=== PATIENT | female | born 1975 | race Caucasian/White ===

== ENCOUNTER → 2017-03-23 | Outpatient (CLI) | payer BC | LOC: LAB.O 09:03 | PROVIDERS: ATTEND Obstetrics & Gynecology | DX: Z01.419 Encounter for gynecological examination (general) (routine) without abnormal findings (principal) ==

== ENCOUNTER 2017-12-08 06:14 | Inpatient (IN) | payer BC ==
[2017-12-08] MEDS ORDERED: LEVALBUTEROL NEBS 1.25 MG/3 ML VIAL NEB ONE ×3 (06:30→08:15)
--- NOTE | 2017-12-08 06:54 | ED.PDOC ---
History of Present Illness - General Source: patient Exam Limitations: no limitations - History of Present Illness Comments: Bing Kingston 42 y/o female stated had worsening SOB and productive cough since coming out from the hospital at [facility] 10 days ago.Admitted for bowel obstruction but had cardiac arrest while hospitalized was intubated and on mechanical ventilation for 2 days then gradually weaned off .her intestinal obstruction was managed conservatively w/NGT stating passing out flatus and has bowel movements. No chest pains,no nasea/vomiting ,no fever.also was diagnosed with cardio myopathy recently. Timing/Duration: getting worse, other - 2 days Cough Quality/Degree: productive cough Possible Cause: other - see hpi Improving Factors: nothing Worsening Factors: nothing Associated Symptoms: cough Respiratory Risk Factors: other - see hpi <Jeremy Carrizales - Last Filed: 12/08/17 07:08> <Oswaldo Shelton - Last Filed: 12/08/17 10:48> - General Chief Complaint: Respiratory Problem Stated Complaint: im coughing that my chest hurts Time Seen by Provider: 12/08/17 06:37 - History of Present Illness Allergies/Adverse Reactions: Allergies Sulfa Antibiotics Allergy (Unknown, Verified 12/08/17 06:34) Other Home Medications: Ambulatory Orders Amoxicillin & Pot Clavulanate [Augmentin Tab] 500 mg PO BID 12/08/17 Bifidobacterium Infantis [Align] 4 mg PO DAILY 12/08/17 Carvedilol 6.25 mg PO BID 12/08/17 Docusate Sodium [Colace Cap] 100 mg PO BID 12/08/17 Furosemide [Lasix] 20 mg PO DAILY 12/08/17 Gabapentin 300 mg PO TID 12/08/17 Lisinopril 2.5 mg PO DAILY 12/08/17 Ondansetron [Ondansetron Odt] 8 mg PO Q8HR PRN 12/08/17 Polyethylene Glycol 3350 [Miralax] 17 gm PO DAILY 12/08/17 Simethicone 125 mg PO TID 12/08/17 Tramadol HCl 50 mg PO PRN 12/08/17 cloNAZepam [KlonoPIN] 0.5 mg PO BID PRN 12/08/17 Review of Systems - Review of Systems Constitutional: States: no symptoms reported EENTM: States: no symptoms reported Respiratory: States: see HPI Cardiology: States: no symptoms reported Gastrointestinal/Abdominal: States: no symptoms reported Genitourinary: States: no symptoms reported Musculoskeletal: States: no symptoms reported Skin: States: no symptoms reported Neurological: States: no symptoms reported Endocrine: States: no symptoms reported <Jeremy Carrizales R Last Filed: 12/08/17 07:08> Past Medical History (General) - Patient Medical History Hx Cancer: Yes - left kidney Surgical History: other - nephrectomy left,mechanical vent,hysterectomy <Jeremy Carrizales R - Last Filed: 12/08/17 07:08> Family Medical History - Family History Father Hx Family Hypertension: Yes Hx Family Cancer: Yes - kidney,lymphoma Paternal Hx Family Asthma: No Hx Family Congestive Heart Failure: No Hx Family Hypertension: Yes Hx Family Stroke: No Hx Cardiac Disease: Yes Hx Family Diabetes: No Hx Family Cancer: Yes Hx Family;Other: lymphoma, materal COPD, cardiomyopathy <Jeremy Carrizales R Last Filed: 12/08/17 07:08> Physical Exam - Physical Exam General Appearance: Alert, Comfortable, No apparent distress Eye Exam: bilateral normal ENT Exam: normal ENT inspection, hearing grossly normal, pharynx normal Neck: supple, normal inspection, trachea midline Respiratory: no respiratory distress, no accessory muscle use, stridor, wheezing Cardiovascular/Chest: normal peripheral pulses, regular rate, rhythm, no murmur Gastrointestinal/Abdominal: non tender, soft, no organomegaly Extremity: no pedal edema, no calf tenderness Neurologic: alert, oriented x 3 Skin Exam: normal color, warm/dry <Jeremy Carrizales R - Last Filed: 12/08/17 07:08> Progress - Progress Progress: 12/08/17 07:00 Vital Signs - 8 hr 12/08/17 12/08/17 06:30 06:51 Temperature 98.4 F Pulse Rate [ 96 H pulse ox] Respiratory 20 20 Rate Blood Pressure 133/98 [Right Arm] O2 Sat by Pulse 96 Oximetry - EKG/XRAY/CT EKG: Sinus, nonspecific ST T wave Chg Comments: HR-76 <Jeremy Carrizales R - Last Filed: 12/08/17 07:08> - Progress Progress: 12/08/17 10:37 the patient's a 42-year-old female presenting to the emergency room with what appears to be a tracheitis and bronchitis 8 days after being extubated along with a mild CHF exacerbation.the patient had apparently been in the hospital up until 8 days ago for a volvulus that was treated nonsurgically. 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 The patient was extubated after 2 days and did have a pacemaker placed. It was thought that during the code the patient aspirated and the patient has apparently been on amoxicillin since. There is no history of COPD or asthma. Clinical exam is most consistent with a tracheitis and bronchitis today however chest x-ray is obviously showed changes consistent with CHF. She does have a markedly elevated BNP consistent with CHF. Blood and sputum cultures are being done. The patient does feel better after DuoNeb and Mucomyst breathing treatments. She does not become hypoxic except with coughing episodes and with lying back. She does feel less short of breath with oxygen on board. I would recommend humidifying it. The patient has received 40 mg oral prednisone for now to help reduce upper airway inflammation. She does additionally have a low potassium and low magnesium which will need to be followed. She has received 1 dose of IV Lasix for the CHF component. She is also receiving a dose of azithromycin for atypical bacterial sources, and is being covered with a dose of IM Rocephin and oral Levaquin for the possibility of this being a [id number] hospital-acquired infection. It is possible that the symptoms are due to a viral infection as a white blood cell count is essentially normal. It is also possible this may be due to persistent inflammation from the intubation or possibly persistent irritation from the aspiration. Again symptoms do seem to improve significantly with supplemental oxygen as well as the breathing treatments. The patient has been monitored in the emergency room for approximately 4 hours and does appear to be slowly improving with the above measures. Admit for continued measures above. The patient is very frail and we are trying to prevent further deterioration. 12/08/17 10:46 - Results/Orders Results/Orders: Laboratory Tests 12/08/17 12/08/17 12/08/17 07:20 07:20 08:54 WBC 5.4 RBC 3.30 L Hgb 11.1 L Hct 33.2 L MCV 100.6 H MCH 33.6 H MCHC 33.4 RDW 14.8 H Plt Count 474 H MPV 7.6 Absolute Neuts (auto) 3.50 Absolute Lymphs (auto) 1.00 Absolute Monos (auto) 0.70 Absolute Eos (auto) 0.10 Absolute Basos (auto) 0.10 Neutrophils % 64.1 Lymphocytes % 18.5 L Monocytes % 13.2 H Eosinophils % 2.2 Basophils % 2.0 PT 10.4 INR 1.04 PTT (SP) 19.1 L Sodium 141 Potassium 2.7 L Chloride 101 Carbon Dioxide 33 H Anion Gap 9.7 L BUN < 5 L Creatinine < 0.40 L BUN/Creatinine Ratio 12.0 Random Glucose 95 Serum Osmolality 277.3 Lactic Acid 1.2 Calcium 9.0 Magnesium 1.6 L Total Bilirubin 0.6 Direct Bilirubin < 0.1 Indirect Bilirubin 0.5 AST 27 ALT 16 Alkaline Phosphatase 82 Creatine Kinase 34 CK-MB (CK-2) 0.8 CK-MB (CK-2) % Not Reportable Troponin I < 0.02 B-Natriuretic Peptide 816.0 H* Serum Total Protein 6.4 Albumin 3.3 Urine Color Yellow Urine Appearance Clear Urine pH 8.5 H Ur Specific [place] 1.015 Urine Protein Negative Urine Glucose (UA) Negative Urine Ketones Negative Urine Blood Negative Urine Nitrite Negative Urine Bilirubin Negative Urine Urobilinogen 0.2 Ur Leukocyte Esterase Negative Urine RBC 0 Urine WBC 0 Ur Epithelial Cells 3-5 Urine Bacteria 0 EKG shows normal sinus rhythm. There does appear to be a fair amount of baseline static and mildly low voltage. No evidence of any ST segment elevation. Chest x-ray is consistent with congestive heart failure. Soft tissue of the neck x-ray showed no obvious acute abnormality. <Oswaldo Shelton L - Last Filed: 12/08/17 10:48> Departure <Jeremy Carrizales R - Last Filed: 12/08/17 07:08> <Oswaldo Shelton L - Last Filed: 12/08/17 10:48> - Departure Clinical Impression: Bronchitis, Tracheitis, Hypokalemia, Hypomagnesemia Acute exacerbation of CHF (congestive heart failure) Qualifiers: Heart failure type: combined systolic and diastolic Qualified Code(s): I50.43 - Acute on chronic combined systolic (congestive) and diastolic (congestive) heart failure Disposition: Admit Patient Referrals: Alejandro Garcia MD [Primary Care Provider] - 1-2 Weeks Home Medications: Ambulatory Orders Amoxicillin & Pot Clavulanate [Augmentin Tab] 500 mg PO BID 12/08/17 Bifidobacterium Infantis [Align] 4 mg PO DAILY 12/08/17 Carvedilol 6.25 mg PO BID 12/08/17 Docusate Sodium [Colace Cap] 100 mg PO BID 12/08/17 Furosemide [Lasix] 20 mg PO DAILY 12/08/17 Gabapentin 300 mg PO TID 12/08/17 Lisinopril 2.5 mg PO DAILY 12/08/17 Ondansetron [Ondansetron Odt] 8 mg PO Q8HR PRN 12/08/17 Polyethylene Glycol 3350 [Miralax] 17 gm PO DAILY 12/08/17 Simethicone 125 mg PO TID 12/08/17 Tramadol HCl 50 mg PO PRN 12/08/17 cloNAZepam [KlonoPIN] 0.5 mg PO BID PRN 12/08/17 Decision To Admit - Decistion To Admit Decision to Admit Reason: Medical Nature Decision to Admit Date: 12/08/17 Decision to Admit Time: 10:48 <Oswaldo Shelton - Last Filed: 12/08/17 10:48>
--- NOTE | 2017-12-08 07:33 | RAD ---
EXAM: Single view chest. INDICATION: Cough. COMPARISON: Chest x-ray: None. FINDINGS: There is pulmonary vascular congestion with interstitial edema. Bilateral pleural effusions are present. The heart is at the upper limit of normal in size with a left chest wall AICD in place. There is no pneumothorax. IMPRESSION: CHF exacerbation Electronically signed by: Gerardo Sal MD 12/08/2017 7:32 AM CDT Workstation: [id number]
--- NOTE | 2017-12-08 07:34 | RAD ---
Neck,Soft Tissue HISTORY: Cough FINDINGS: AP and lateral views of the neck soft tissues show normal prevertebral soft tissues. The nasopharynx, oropharynx, supra and infraglottic airway are unremarkable. The epiglottis and aryepiglottic folds are normal. The hyoid bone is unremarkable. There are no radiopaque foreign bodies noted. There are no gross osseous abnormalities seen in the cervical spine vertebral bodies. IMPRESSION: 1. Unremarkable soft tissue neck 2 views. Electronically signed by: Gerardo Sal MD 12/08/2017 7:33 AM CDT Workstation: [id number]
[2017-12-08] MEDS ORDERED: MAGNESIUM SULFATE PREMIX 2GM 2 GM in PREMIX BAG 1 BAG IVPB ONE (07:53)
[2017-12-08] MEDS ORDERED: POTASSIUM CHLORIDE ELIXIR 20 MEQ/15 ML UD PO ONE (07:53)
[2017-12-08] MEDS ORDERED: MAGNESIUM SULFATE PREMIX 2GM 50 ML IVPB ONE (08:04)
[2017-12-08] MEDS ORDERED: IPRATROPIUM BROMIDE NEBS 0.5 MG/2.5 ML VIAL NEB ONE (08:15)
[2017-12-08] MEDS ORDERED: FUROSEMIDE INJ 40 MG/4 ML VIAL IV ONE (08:17)
[2017-12-08] MEDS ORDERED: predniSONE 20 MG TAB PO ONE (08:18)
[2017-12-08] MEDS ORDERED: AZITHROMYCIN 250 MG TAB PO ONE (08:33)
[2017-12-08] MEDS ORDERED: cefTRIAXone SODIUM 1 GM in SODIUM CHL 0.9% 50ML MIN-BAG+ 50 ML IVPB ONE (08:33)
[2017-12-08] MEDS ORDERED: SODIUM CHL 0.9% 50ML MIN-BAG+ 50 ML IVPB ONE (08:42)
[2017-12-08] MEDS ORDERED: cefTRIAXone SODIUM 1 GM VIAL ONE (08:42)
[2017-12-08] MEDS ORDERED: ACETYLCYSTEIN 20 % 6,000 MG/30 ML VIAL NEB ONE ×2 (09:13→09:30)
[2017-12-08] MEDS ORDERED: levoFLOXacin 500 MG TAB PO ONE (09:14)
[2017-12-08] MEDS ORDERED: ACETYLCYSTEIN 20 % 6,000 MG/30 ML VIAL ONE (09:17)
[2017-12-08] MEDS ORDERED: FLUCONAZOLE 100 MG TAB PO ONE (09:18)
[2017-12-08] MEDS ORDERED: PROMETHAZINE HCL INJ 12.5 MG in SODIUM CHLORIDE 0.9% 50ML 50 ML IVPB ONE (10:48)
[2017-12-08] MEDS ORDERED: PROMETHAZINE HCL INJ 25 MG/ML VIAL ONE (10:49)
[2017-12-08] MEDS ORDERED: SODIUM CHLORIDE 0.9% 50ML 50 ML ONE (10:49)
--- NOTE | 2017-12-08 11:27 | HP ---
SUPERVISING PHYSICIAN: Rick Malave MD CHIEF COMPLAINT: Coughing and shortness of breath. HISTORY OF PRESENT ILLNESS: This is a 42 year-old female patient who was in the hospital in the [facility]. She was admitted for a volvulus and had to have laparoscopic surgery. Shortly after her surgery she had a cardiac arrest and was intubated and placed on a ventilator. She was on the ventilator and intubated for 2 days. She was weaned off. Shortly after extubation she had some arrhythmias and ended up with a pacemaker/defibrillator and her surgery was managed conservatively over the next few days. She had been started on an Hernandez inhibitor and a beta luis during her hospitalization. She came into the Emergency Room today with shortness of breath and productive hacking coughing since coming out of the hospital approximately 10 days ago. She complains of being very hoarse and having a difficult time coughing up her phlegm. In the Emergency Room she was given several breathing treatments. Her vital signs initially had her 02 saturations down to 92 and her lower extremities were very swollen. She was afebrile. Heart rate was in the upper 90s with a blood pressure of 110/67. Her lab showed a white blood cell count of 5.4 with hemoglobin of 11.1 and hematocrit of 33.2. Her sodium was 141, potassium 2.7, chloride 101, carbon dioxide 33, anion gap 97, BUN less than 5, creatinine less than 0.4. Her magnesium was 1.6. Liver enzymes were basically within normal limits and her BNP was 816. She was given some diuretics, breathing treatments, as well as Mucomyst nebulizer treatments. She was started on azithromycin and ceftriaxone as well as some Diflucan and I was called for hospital admission. PAST MEDICAL HISTORY: 1. Kidney cancer. 2. Hypertension. 3. History of volvulus. PAST SURGICAL HISTORY: 1. Breast augmentation. 2. Hysterectomy. 3. Four miscellaneous laparoscopic surgeries on her abdomen. 4. Laparoscopic abdominal surgery to fix a volvulus. CURRENT MEDICATIONS: ALLERGIES: Sulfa antibiotics. OUTPATIENT MEDICATIONS: 1. Augmentin. 2. Align. 3. Carvedilol. 4. Docusate sodium. 5. Furosemide. 6. Gabapentin. 7. Lisinopril. 8. Zofran. 9. Miralax. 10. Simethicone. 11. Tramadol. 12. Clonazepam. FAMILY HISTORY: SOCIAL HISTORY: She is going through a divorce. She actually lives in [facility] but has been staying frequently with her parents here in [place]. 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 She quit smoking about 10 days ago. She had previously only smoked for one year. She drinks alcohol socially and she occasionally smokes marijuana. REVIEW OF SYSTEMS: GENERAL: Negative for fever, fatigue or weight changes. HEENT: Negative for ear pain vision changes sore throat or sinus symptoms. CHEST: Per the history of present illness. HEART: Negative for chest pain, palpitations, tachycardia. ABDOMEN: Negative for nausea, vomiting or diarrhea or constipation. : Negative for hematuria, dysuria, polyuria. MUSCULOSKELETAL: Negative for arthralgias or myalgias. SKIN: Negative for lesions or rashes. NEUROLOGIC: Negative for seizures, headaches or dizziness. PHYSICAL EXAMINATION: VITAL SIGNS: Temperature 98.2, heart rate 84, blood pressure 106/74, respiratory rate 18, 02 saturation 92% on room air. GENERAL: This is a 42 year-old female sitting up in her hospital bed. She is in no acute distress. She has a very hoarse voice. HEENT: Normocephalic and atraumatic. Pupils are equal and reactive. Oropharynx is clear. NECK: Supple without mass. CHEST: A few scattered crackles throughout but no wheezing noted. There is equal rise and fall of the chest with inspiration and expiration. CARDIOVASCULAR: Regular rate and rhythm. ABDOMEN: Soft, nondistended, non-tender. Bowel sounds are positive. EXTREMITIES: No cyanosis or clubbing. She does have a trace of edema to her bilateral lower extremities. NEUROLOGIC: She is awake, alert, and oriented x3. SKIN: Warm and dry. LABORATORY: As per the history of present illness with the exception of her second set of labs which shows a potassium of 3.1 with a chloride of 99 and magnesium of 1.8. Her urinalysis was basically within normal limits. Chest x-ray shows congestive heart failure exacerbation. Soft tissue of the neck x-ray shows unremarkable soft tissue neck, 2 view. All other labs and films have been reviewed via the EMR. ASSESSMENT: 1. Congestive heart failure of unknown etiology with exacerbation. She does not recall any diagnosis of congestive heart failure, although she was recently in the hospital and placed on an Hernandez inhibitor as well as a beta luis. There is no current echocardiogram to review. 2. Exacerbation of bronchitis complicated by recent hospitalization with need for placement on ventilatory support. 3. Electrolyte imbalance, namely hypokalemia and hypomagnesemia. 4. Normochromic macrocytic anemia. 5. History of kidney cancer with a left nephrectomy. PLAN: We will admit the patient to the hospital. I will initiate the congestive heart failure guidelines The patient has no idea that she was ever diagnosed with congestive heart failure and we will need to do good congestive heart failure teaching including need for diuretic therapy. She is on IV Lasix at this time and we will need to transition her to p.o. Lasix. I have continued her home medications. I have started her on a PPI for ulcer prophylaxis and Lovenox for DVT prophylaxis. I have ordered potassium and magnesium replacement and we will repeat her lab in the morning as well as a chest x-ray. We will continue to monitor closely and follow as needed. Dr. Malave is the collaborating physician available for consultation. #[id number] [facility] HOSPITALMarleen
[2017-12-08] MEDS ORDERED: ONDANSETRON INJ 4 MG/2 ML VIAL IV PRN (13:47)
[2017-12-08] MEDS ORDERED: NITROGLYCERIN 0.4 MG 25 EA TAB SL PRN (13:47)
[2017-12-08] MEDS ORDERED: traMADol HCL 50 MG TAB PO SCH (14:00)
[2017-12-08] MEDS: ACETYLCYSTEIN 20 % 6,000 MG/30 ML VIAL NEB SCH ×2 (14:17→20:23)
[2017-12-08] MEDS: PANTOPRAZOLE SODIUM IV 40 MG VIAL IV SCH (14:55)
[2017-12-08] MEDS: GABAPENTIN 300 MG CAP PO SCH ×2 (14:57→20:40)
[2017-12-08] MEDS: IV SET AND CAP CHANGE INJ INJ SCH (15:02)
[2017-12-08] MEDS: IPRATROPIUM/ALBUTEROL 3 ML VIAL INH SCH ×2 (15:20→20:23)
[2017-12-08] MEDS: SIMETHICONE 80 MG TAB PO SCH ×2 (17:00→20:40)
[2017-12-08] MEDS: FUROSEMIDE INJ 40 MG/4 ML VIAL IV SCH (17:01)
[2017-12-08] MEDS: traMADol HCL 50 MG TAB PO PRN (19:33)
[2017-12-08] MEDS: ENOXAPARIN SODIUM 40 MG/0.4 ML SYG SUBCU SCH (20:40)
[2017-12-08] MEDS: CARVEDILOL 3.125 MG TAB PO SCH (20:40)
[2017-12-08] MEDS: SODIUM CHLORIDE 0.9% (FLUSH) 10 ML SYG IV SCH (20:40)
[2017-12-08] MEDS: DOCUSATE SODIUM 100 MG CAP PO SCH (20:40)
[2017-12-08] MEDS ORDERED: POTASSIUM CHLORIDE 10 MEQ TAB PO ONE ×2 (21:12→21:15)
[2017-12-09] MEDS ORDERED: POLYETHYLENE GLYCOL 3350 17 GM PCKT ONE (03:28)
[2017-12-09] MEDS ORDERED: LISINOPRIL 5 MG TAB ONE (03:29)
[2017-12-09] MEDS ORDERED: SODIUM CHL 0.9% 50ML MIN-BAG+ 50 ML IVPB ONE (03:29)
[2017-12-09] MEDS ORDERED: AZITHROMYCIN 250 MG TAB PO ONE (03:29)
[2017-12-09] MEDS ORDERED: BIFIDOBACTERIUM INFANTIS 4 MG CAP ONE (03:29)
[2017-12-09] MEDS ORDERED: cefTRIAXone SODIUM 1 GM VIAL ONE (03:30)
[2017-12-09] MEDS: traMADol HCL 50 MG TAB PO PRN ×4 (04:02→19:53)
[2017-12-09] MEDS: ALBUTEROL SULFATE 2.5 MG/3 ML VIAL NEB PRN (05:20)
[2017-12-09] MEDS: PANTOPRAZOLE SODIUM IV 40 MG VIAL IV SCH (06:09)
--- NOTE | 2017-12-09 06:44 | RAD ---
Chest 2 view on 12/09/2017 CLINICAL INDICATION: CHF COMPARISON: 12/08/2017 FINDINGS: Single lead left subclavian AICD device tip is in the right ventricle. Heart is upper limits normal for size. There has been improvement in bilateral interstitial opacities consistent with improved edema. There are trace pleural effusions with minimal bibasilar atelectasis. Lungs are otherwise clear. IMPRESSION: Improved interstitial opacities consistent with improved edema. Electronically signed by: George Mehta 12/09/2017 6:43 AM CDT
[2017-12-09] MEDS ORDERED: POTASSIUM CHLORIDE 10 MEQ TAB PO SCH (07:30)
[2017-12-09] MEDS: cefTRIAXone SODIUM 1 GM in SODIUM CHL 0.9% 50ML MIN-BAG+ 50 ML IVPB SCH (08:26)
[2017-12-09] MEDS: LISINOPRIL 5 MG TAB PO SCH (08:27)
[2017-12-09] MEDS: SODIUM CHLORIDE 0.9% (FLUSH) 10 ML SYG IV SCH ×2 (08:27→20:44)
[2017-12-09] MEDS: GABAPENTIN 300 MG CAP PO SCH ×3 (08:28→20:45)
[2017-12-09] MEDS: SIMETHICONE 80 MG TAB PO SCH ×3 (08:28→20:45)
[2017-12-09] MEDS: BIFIDOBACTERIUM INFANTIS 4 MG CAP PO SCH (08:29)
[2017-12-09] MEDS: AZITHROMYCIN 250 MG TAB PO SCH (08:29)
[2017-12-09] MEDS: DOCUSATE SODIUM 100 MG CAP PO SCH ×2 (08:32→20:45)
[2017-12-09] MEDS: FUROSEMIDE INJ 40 MG/4 ML VIAL IV SCH (08:32)
[2017-12-09] MEDS: CARVEDILOL 3.125 MG TAB PO SCH ×2 (08:34→20:45)
[2017-12-09] MEDS: IPRATROPIUM/ALBUTEROL 3 ML VIAL INH SCH ×4 (08:37→20:26)
[2017-12-09] MEDS: ACETYLCYSTEIN 20 % 6,000 MG/30 ML VIAL NEB SCH ×2 (08:37→13:45)
[2017-12-09] MEDS: POLYETHYLENE GLYCOL 3350 17 GM PCKT PO SCH (08:42)
[2017-12-09] MEDS ORDERED: metroNIDAZOLE IV PREMIX 500MG 100 ML IVPB ONE ×3 (09:00→19:25)
[2017-12-09] MEDS: metroNIDAZOLE IV PREMIX 500MG 500 MG in PREMIX BAG 1 BAG IVPB SCH ×2 (09:12→16:35)
[2017-12-09] MEDS: FLUCONAZOLE 100 MG TAB PO SCH (12:06)
[2017-12-09] MEDS ORDERED: BENZOCAINE-MENTH LOZ (CEPACOL) 1 EA LOZ MT PRN (12:13)
[2017-12-09] MEDS ORDERED: FUROSEMIDE INJ 40 MG/4 ML VIAL IV ONE (13:00)
[2017-12-09] MEDS: FUROSEMIDE 40 MG TAB PO SCH (16:35)
--- NOTE | 2017-12-09 16:35 | PN ---
DATE: 12/09/17 SUPERVISING PHYSICIAN: Rick Malave M.D. SUBJECTIVE: The patient is walking around in the halls. Feeling much better today. She continues to have a very coarse productive cough as well as some shortness of breath but much improved since yesterday. Denies chest pain, nausea, vomiting, diarrhea or constipation. OBJECTIVE: VITAL SIGNS: She is afebrile, heart rate 78, blood pressure 93/62, respiratory rate 18, O2 sat 99% on room air. RESPIRATORY: Scattered rhonchi throughout. No crackles noted. No expiratory wheezing noted. CARDIAC: Regular rate and rhythm. GASTROINTESTINAL: Abdomen is soft, nondistended, non- tender. Bowel sounds are positive. EXTREMITIES: No cyanosis, clubbing or edema. NEUROLOGIC: She is awake, alert and oriented times three. LABORATORY: WBCs are 14.5 with hemoglobin and hematocrit of 11.1 and 33.5. She does have a left shift on differential. Potassium is slightly low at 3.3 with chloride 100, BUN 6, creatinine 0.66, glucose 174. Liver enzymes are within normal limits. Preliminary blood cultures show no growth after 24 hours. Chest x-ray shows improved interstitial opacity consistent with improved edema. All other labs and films have been reviewed via the EMR. ASSESSMENT: 1. Congestive heart failure of unknown etiology with exacerbation. She does not recall any diagnosis of congestive heart failure, although she was recently in the hospital and placed on an Hernandez inhibitor as well as a beta luis. There is no current echocardiogram to review. 2. Exacerbation of bronchitis complicated by recent hospitalization with need for placement on ventilatory support. 3. Electrolyte imbalance, namely hypokalemia and hypomagnesemia. 4. Normochromic macrocytic anemia. 5. History of kidney cancer with a left nephrectomy. PLAN: We will continue present supportive care. I have added Mucinex to help with her cough. I will repeat her lab in the morning. She has also gotten potassium replacement as well as scheduled daily. I have changed her IV Lasix to p.o. Will check her electrolytes in the morning. Again, we have done CHF treating and it would be beneficial to try to obtain her echo report at some point. We have requested her records from [facility] and we have not received those as yet. 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 #[id number] HAYDEN
[2017-12-09] MEDS: ENOXAPARIN SODIUM 40 MG/0.4 ML SYG SUBCU SCH (20:45)
[2017-12-10] MEDS: metroNIDAZOLE IV PREMIX 500MG 500 MG in PREMIX BAG 1 BAG IVPB SCH ×3 (00:15→15:46)
[2017-12-10] MEDS: traMADol HCL 50 MG TAB PO PRN ×5 (00:24→18:32)
[2017-12-10] MEDS: ALBUTEROL SULFATE 2.5 MG/3 ML VIAL NEB PRN (03:50)
[2017-12-10] MEDS: PANTOPRAZOLE SODIUM IV 40 MG VIAL IV SCH (06:35)
[2017-12-10] MEDS ORDERED: SODIUM CHL 0.9% 50ML MIN-BAG+ 50 ML IVPB ONE (07:57)
[2017-12-10] MEDS ORDERED: metroNIDAZOLE IV PREMIX 500MG 100 ML IVPB ONE ×3 (07:59→19:25)
[2017-12-10] MEDS ORDERED: cefTRIAXone SODIUM 1 GM VIAL ONE (07:59)
[2017-12-10] MEDS: cefTRIAXone SODIUM 1 GM in SODIUM CHL 0.9% 50ML MIN-BAG+ 50 ML IVPB SCH (08:46)
[2017-12-10] MEDS: IPRATROPIUM/ALBUTEROL 3 ML VIAL INH SCH ×4 (08:47→20:12)
[2017-12-10] MEDS ORDERED: MAGNESIUM SULFATE PREMIX 2GM 2 GM in PREMIX BAG 1 BAG IVPB ONE (08:47)
[2017-12-10] MEDS: SIMETHICONE 80 MG TAB PO SCH ×3 (08:49→20:33)
[2017-12-10] MEDS: DOCUSATE SODIUM 100 MG CAP PO SCH ×2 (08:49→20:33)
[2017-12-10] MEDS: BIFIDOBACTERIUM INFANTIS 4 MG CAP PO SCH (08:49)
[2017-12-10] MEDS: LISINOPRIL 5 MG TAB PO SCH (08:50)
[2017-12-10] MEDS: CARVEDILOL 3.125 MG TAB PO SCH ×2 (08:51→20:33)
[2017-12-10] MEDS: AZITHROMYCIN 250 MG TAB PO SCH (08:51)
[2017-12-10] MEDS: GABAPENTIN 300 MG CAP PO SCH ×3 (08:52→20:33)
[2017-12-10] MEDS: POTASSIUM CHLORIDE 10 MEQ TAB PO SCH (08:52)
[2017-12-10] MEDS: FLUCONAZOLE 100 MG TAB PO SCH (08:53)
[2017-12-10] MEDS: POLYETHYLENE GLYCOL 3350 17 GM PCKT PO SCH (08:58)
[2017-12-10] MEDS ORDERED: MAGNESIUM SULFATE PREMIX 2GM 50 ML IVPB ONE (09:12)
[2017-12-10] MEDS ORDERED: methylPREDNISolone SODIUM SUC 125 MG/2 ML VIAL IV ONE (09:24)
[2017-12-10] MEDS: guaiFENesin ER TAB 600 MG TAB PO SCH ×2 (09:27→20:33)
[2017-12-10] MEDS: FUROSEMIDE 40 MG TAB PO SCH ×2 (09:27→17:53)
[2017-12-10] MEDS: SODIUM CHLORIDE 0.9% (FLUSH) 10 ML SYG IV SCH ×2 (09:27→20:33)
[2017-12-10] MEDS ORDERED: POTASSIUM CHLORIDE 10 MEQ TAB PO ONE (10:00)
--- NOTE | 2017-12-10 13:43 | PN ---
DATE: 12/10/17 SUPERVISING PHYSICIAN: Rick Malave M.D. SUBJECTIVE: The patient is sitting up in bed. Her family is at the bedside. She is feeling better but she continues to have a productive deep cough and her ribs hurt where she had chest compressions done. We discussed her pulmonary hygiene and discharge plan. She is aware that she has electrolyte imbalances that need to be corrected and we will do that over the next day or two. She does have an appointment with her chair upholsterer on the . OBJECTIVE: VITAL SIGNS: She is afebrile, heart rate 77, blood pressure 93/60, respiratory rate 20, O2 sat 95% on room air. RESPIRATORY: Essentially clear to auscultation bilaterally. She does have an expiratory wheeze in the left lower lung field as well as an occasional scattered crackle, otherwise much improved since yesterday. CARDIAC: Regular rate and rhythm. GASTROINTESTINAL: Abdomen is soft, nondistended, non-tender. Bowel sounds are positive. EXTREMITIES: No cyanosis, clubbing or edema. NEUROLOGIC: She is awake, alert and oriented times three. LABORATORY: WBCs have normalized to 8.9 with hemoglobin 12.2 and hematocrit 36.6. No left leg shift on differential. Sodium 137, potassium 2.9, chloride 95, carbon dioxide 32, BUN less than 5, creatinine 0.57, magnesium 1.7. Preliminary blood cultures show no growth after 48 hours. All other labs and films have been reviewed via the EMR. ASSESSMENT: 1. Congestive heart failure of unknown etiology with exacerbation. She does not recall any diagnosis of congestive heart failure, although she was recently in the hospital and placed on an Hernandez inhibitor as well as a beta luis. There is no current echocardiogram to review. 2. Exacerbation of bronchitis complicated by recent hospitalization with need for placement on ventilatory support. 3. Electrolyte imbalance, namely hypokalemia and hypomagnesemia. 4. Normochromic macrocytic anemia. 5. History of kidney cancer with a left nephrectomy. PLAN: We will continue present supportive care. I have given her potassium replacement as well as magnesium replacement. She has been converted to p.o. Lasix. I will do lab and chest x-ray in the morning. I have also added some more pulmonary hygiene including a flutter valve. She was on incentive spirometry. I did give her 1 dose of Solu-Medrol to assist with the inflammation. We will continue to monitor her closely hopefully for discharge tomorrow or the next day with close followup with her chair upholsterer. #[id number] H[facility]DEN
[2017-12-10] MEDS: ENOXAPARIN SODIUM 40 MG/0.4 ML SYG SUBCU SCH (20:33)
[2017-12-11] MEDS: metroNIDAZOLE IV PREMIX 500MG 500 MG in PREMIX BAG 1 BAG IVPB SCH ×3 (00:01→16:32)
[2017-12-11] MEDS: traMADol HCL 50 MG TAB PO PRN ×6 (00:06→20:20)
[2017-12-11] MEDS: ALBUTEROL SULFATE 2.5 MG/3 ML VIAL NEB PRN (04:30)
[2017-12-11] MEDS: PANTOPRAZOLE SODIUM IV 40 MG VIAL IV SCH (06:06)
--- NOTE | 2017-12-11 06:18 | RAD ---
Chest 2 view on 12/11/2017 CLINICAL INDICATION: CHF COMPARISON: 12/09/2017 FINDINGS: Single lead left subclavian AICD device tip is in the right ventricle. A few overlying wires are noted. There is slight elevation of left hemidiaphragm. There has been improved basilar atelectasis. Mild chronic interstitial changes are noted. The lungs are otherwise now clear. Cardiac, hilar and mediastinal contours are within normal limits. Pulmonary vascularity is within normal limits. IMPRESSION: No acute disease now noted. Electronically signed by: George Mehta 12/11/2017 6:16 AM CDT
[2017-12-11] MEDS ORDERED: SODIUM CHL 0.9% 50ML MIN-BAG+ 50 ML IVPB ONE (07:49)
[2017-12-11] MEDS ORDERED: cefTRIAXone SODIUM 1 GM VIAL ONE (07:51)
[2017-12-11] MEDS ORDERED: metroNIDAZOLE IV PREMIX 500MG 100 ML IVPB ONE ×3 (07:51→19:59)
[2017-12-11] MEDS: cefTRIAXone SODIUM 1 GM in SODIUM CHL 0.9% 50ML MIN-BAG+ 50 ML IVPB SCH (08:01)
[2017-12-11] MEDS: POTASSIUM CHLORIDE 10 MEQ TAB PO SCH (08:02)
[2017-12-11] MEDS: IPRATROPIUM/ALBUTEROL 3 ML VIAL INH SCH ×4 (08:28→20:42)
[2017-12-11] MEDS: POLYETHYLENE GLYCOL 3350 17 GM PCKT PO SCH (08:39)
[2017-12-11] MEDS: GABAPENTIN 300 MG CAP PO SCH ×3 (08:39→20:34)
[2017-12-11] MEDS: AZITHROMYCIN 250 MG TAB PO SCH (08:39)
[2017-12-11] MEDS: SIMETHICONE 80 MG TAB PO SCH ×3 (08:40→20:32)
[2017-12-11] MEDS: LISINOPRIL 5 MG TAB PO SCH (08:40)
[2017-12-11] MEDS: BIFIDOBACTERIUM INFANTIS 4 MG CAP PO SCH (08:40)
[2017-12-11] MEDS: DOCUSATE SODIUM 100 MG CAP PO SCH ×2 (08:40→20:34)
[2017-12-11] MEDS: CARVEDILOL 3.125 MG TAB PO SCH ×2 (08:40→21:04)
[2017-12-11] MEDS: guaiFENesin ER TAB 600 MG TAB PO SCH ×2 (08:40→20:34)
[2017-12-11] MEDS: FUROSEMIDE 40 MG TAB PO SCH ×2 (08:41→16:29)
[2017-12-11] MEDS: FLUCONAZOLE 100 MG TAB PO SCH (08:41)
[2017-12-11] MEDS: SODIUM CHLORIDE 0.9% (FLUSH) 10 ML SYG IV SCH ×2 (08:41→20:35)
[2017-12-11] MEDS ORDERED: POTASSIUM CHLORIDE 10 MEQ TAB PO ONE (09:00)
--- NOTE | 2017-12-11 12:38 | PN ---
DATE: 12/11/17 SUPERVISING PHYSICIAN: Rick Malave M.D. SUBJECTIVE: The patient is sitting up in her bed. She complains of chest discomfort where her compressions were done when she coded and CPR was administered. Her coughing is some better. She still has a cough but she is coughing up quite a bit of greenish phlegm. She feels much better. No shortness of breath. No chest pain. No nausea and no vomiting. OBJECTIVE: VITAL SIGNS: She is afebrile, heart rate 80, blood pressure 103/70, respiratory rate 20, O2 sat 98% on room air. RESPIRATORY: Essentially clear to auscultation bilaterally. She does have a few scattered rhonchi that clear with cough. CARDIAC: Regular rate and rhythm. GASTROINTESTINAL: Abdomen is soft, nondistended, non-tender. Bowel sounds are positive. CHEST: She does have a dressing over her pacemaker insertion site that is dry and intact. The dressing does not look to be compromised. EXTREMITIES: No cyanosis, clubbing or edema. NEUROLOGIC: She is awake, alert and oriented times three. LABORATORY: WBCs are 13,900. She did receive a dose of steroids yesterday. Hemoglobin 11.1 with hematocrit 33.8. Sodium 140, potassium 3.5, chloride 104, carbon dioxide 29, BUN 6, creatinine 0.51, glucose 113. Serum osmolality 277.8 , calcium 9.1, magnesium 1.8. Preliminary blood cultures show no growth after 3 days. Chest x-ray shows no acute disease now noted. All other labs and films have been reviewed via the EMR. ASSESSMENT: 1. Congestive heart failure of unknown etiology with exacerbation. She does not recall any diagnosis of congestive heart failure, although she was recently in the hospital and placed on an Hernandez inhibitor as well as a beta luis. There is no current echocardiogram to review. 2. Exacerbation of bronchitis complicated by recent hospitalization with need for placement on ventilatory support. 3. Electrolyte imbalance, namely hypokalemia and hypomagnesemia. 4. Normochromic macrocytic anemia. 5. History of kidney cancer with a left nephrectomy. PLAN: We will continue present supportive care. At this point we are still encouraging good pulmonary hygiene. She needs to be sent home with some Mucinex as I believe that has helped her cough more than anything. I have adjusted her potassium. She got an extra dose of potassium today and tomorrow she should be sent home on 80 mg total of Lasix as well as 40 mEq total of potassium. I will recheck her electrolytes in the morning and hopefully she will be discharged. She has an appointment with her special delivery worker on the . She will need additional CHF teaching. She will need to followup with her primary care physician, Dr. Shelton in [place]. Will need to do some lab prior to her leaving [place], maybe on Tuesday, to take to her special delivery worker. She will need to go home with lab order to be done prior to her appointment with her special delivery worker. Dr. Malave is the collaborating physician available for consultation. #[id number] [facility] SYSTEMMarleen
[2017-12-11] MEDS: IV SET AND CAP CHANGE INJ INJ SCH (16:28)
[2017-12-11] MEDS: ENOXAPARIN SODIUM 40 MG/0.4 ML SYG SUBCU SCH (20:34)
[2017-12-12] MEDS: metroNIDAZOLE IV PREMIX 500MG 500 MG in PREMIX BAG 1 BAG IVPB SCH ×2 (00:52→08:55)
[2017-12-12] MEDS: SODIUM CHLORIDE 0.9% (FLUSH) 10 ML SYG IV PRN ×2 (00:53→06:04)
[2017-12-12] MEDS: traMADol HCL 50 MG TAB PO PRN (06:03)
[2017-12-12] MEDS: PANTOPRAZOLE SODIUM IV 40 MG VIAL IV SCH (06:04)
[2017-12-12 06:44] VITALS: O2SAT 98
[2017-12-12] MEDS ORDERED: POTASSIUM CHLORIDE 10 MEQ TAB PO SCH (07:30)
[2017-12-12] MEDS: IPRATROPIUM/ALBUTEROL 3 ML VIAL INH SCH (07:41)
[2017-12-12] MEDS ORDERED: SODIUM CHL 0.9% 50ML MIN-BAG+ 50 ML IVPB ONE (07:46)
[2017-12-12] MEDS ORDERED: cefTRIAXone SODIUM 1 GM VIAL ONE (07:48)
[2017-12-12] MEDS ORDERED: metroNIDAZOLE IV PREMIX 500MG 100 ML IVPB ONE (07:48)
[2017-12-12] MEDS: cefTRIAXone SODIUM 1 GM in SODIUM CHL 0.9% 50ML MIN-BAG+ 50 ML IVPB SCH (08:22)
[2017-12-12] MEDS: DOCUSATE SODIUM 100 MG CAP PO SCH (08:23)
[2017-12-12] MEDS: GABAPENTIN 300 MG CAP PO SCH (08:23)
[2017-12-12] MEDS: FUROSEMIDE 40 MG TAB PO SCH (08:23)
[2017-12-12] MEDS: SIMETHICONE 80 MG TAB PO SCH (08:23)
[2017-12-12] MEDS: FLUCONAZOLE 100 MG TAB PO SCH (08:23)
[2017-12-12] MEDS: CARVEDILOL 3.125 MG TAB PO SCH (08:24)
[2017-12-12] MEDS: LISINOPRIL 5 MG TAB PO SCH (08:24)
[2017-12-12] MEDS: POLYETHYLENE GLYCOL 3350 17 GM PCKT PO SCH (08:25)
[2017-12-12] MEDS: BIFIDOBACTERIUM INFANTIS 4 MG CAP PO SCH (08:54)
[2017-12-12] MEDS: guaiFENesin ER TAB 600 MG TAB PO SCH (08:54)
[2017-12-12] MEDS: AZITHROMYCIN 250 MG TAB PO SCH (08:55)
[2017-12-12] MEDS: SODIUM CHLORIDE 0.9% (FLUSH) 10 ML SYG IV SCH (08:56)
[2017-12-12 09:48] VITALS: TEMP 98
[2017-12-12] MEDS ORDERED: INFLUENZA VIRUS VACC (ADULT) 0.5 ML SYG IM ONE (12:49)
[2017-12-12 13:44] VITALS: BP 112/68
[2017-12-13] MEDS ORDERED: PANTOPRAZOLE SODIUM TAB 40 MG PO SCH (06:30)
--- NOTE | 2017-12-13 08:53 | DS ---
SUPERVISING PHYSICIAN: Herbie Kent MD ADMISSION DIAGNOSIS: 1. Acute congestive heart failure without any history of previous note of congestive heart failure with exacerbation currently on DAVID inhibitor and beta luis prior to admission with no echocardiogram at time of admission for review. 2. Exacerbation of bronchitis complicated by recent hospitalization having been placed on ventilator secondary to pulmonary cardiac arrest. 3. Electrolyte imbalance with hypokalemia and hypomagnesemia. 4. Normochromic/macrocytic anemia. 5. History of kidney cancer with a left nephrectomy. DISCHARGE DIAGNOSIS: 1. Congestive heart failure, likely etiology cardiomyopathy with systolic component with no echocardiogram available for review with the patient having been on DAVID inhibitor and beta blockers as well as Lasix and potassium, showing improvement with fluid restrictions and diuresis with BNP on admission of 816. 2. Exacerbation of bronchitis complicated by recent hospitalization with need for ventilatory support from acute pulmonary cardiac arrest. 3. Electrolyte imbalance with hypokalemia and hypomagnesemia, requiring replacement secondary to Lasix administration with magnesium normalized prior to discharge. 4. Normochromic/macrocytic anemia, likely due to chronic illness. 5. History of kidney cancer with a left nephrectomy. REASON FOR HOSPITALIZATION: Ms. Foss is a 42-year-old female patient who was recently in the hospital in [place] at [facility]. She was originally admitted for a volvulus and had to have laparoscopic surgery. Shortly after her surgery, she had a cardiac arrest and was intubated and placed on a ventilator. She was extubated on day 3 and at that time developed arrhythmias and ended up with a pacemaker/defibrillator. She had been started on an DAVID inhibitor and a beta luis during her hospitalization. She came into the Emergency Room on 12/08/17 with shortness of breath and productive hacking coughing since coming out of the hospital approximately 10 days previously. She complained of being very hoarse and having a difficult time coughing up phlegm. In the Emergency Room, she was given several breathing treatments. Her vital signs showed O2 saturations 92% on room air with lower extremities very swollen. Her lab showed a normal white count. Potassium was low at 2.7. BNP elevated at 816. At that point, she was given some diuretics, breathing treatments, as well as Mucomyst nebulizer treatments. She was started on azithromycin and Rocephin as well as some Diflucan and was admitted to the hospital. LABORATORY: CBC on admission showed white count 5,400. She did go up to a high of 14,500. Prior to discharge, it had gone down to 8,300. Hemoglobin and hematocrit were stable and at discharge were 11.8 and 35.3 respectively with platelet count 547,000. Differential showed a left shift initially on admission , but it resolved prior to discharge. Coagulation studies showed PT 10.4, PT-T 92.1. Chemistries on admission showed hypokalemia with potassium 2.7, BUN less than 5, creatinine less than 0.4 with serum osmolality 277. Glucose 95. Magnesium low at 1.6. Liver functions were within normal limits. BNP was elevated at 816. Troponin less than 0.02. After fluid restriction, Lasix and further treatment, prior to discharge, electrolytes showed some improvement although she continued to show a mild hypokalemia with potassium at discharge of 3.1. Magnesium normalized to 1.8. Creatinine was 0.56 with BUN 8. Urinalysis on admission was within normal limits except for high pH of 8.5. MICROBIOLOGY: Blood cultures showed no growth at 4 days. She had a swab for influenza by PCR which was negative for A and B. RADIOLOGY: Initial chest x-ray in the Emergency Department per radiologic interpretation showed CHF exacerbation with bilateral pleural effusions and cardiovascular congestion with interstitial edema. She also had a soft tissue of the neck and per radiologic interpretation showed unremarkable soft tissue, two views. She had followup x-rays. Last x-ray on 12/11/17, the day before discharge, per radiologic interpretation showed no acute disease noted. There had been improved basilar atelectasis, mild chronic interstitial changes noted. Lungs were noted to be clear. Cardiac hilar and mediastinal contours were within normal limits. Pulmonary vasculature was within normal limits. HOSPITAL COURSE: MS. Foss was admitted on 12/08/17 initially for exacerbation of congestive heart failure and worsening bronchitis. She was started on antibiotics with some Flagyl, azithromycin and Rocephin. She showed good clinical improvement. In regards to congestive heart failure, she was diuresed with fairly aggressive management with Lasix and was showing improvement. She was no longer having shortness of breath and felt she could be discharged to continue with outpatient management. PLAN: Ms. Foss was discharged on 12/12/17 to followup with her stress test technician and privacy specialist who put the pacemaker in in the following weeks. She was to followup with her primary care provider in the [facility], Dr. Shelton, as well. She was encouraged to increase her activity as tolerated but to avoid any strenuous activities until she could be cleared by stress test technician and to avoid pushing or pulling with the left sided extremity with the newly implanted pacemaker device. Diet at discharge was low salt diet. She was told to watch her weight, keep a daily log and if she noticed her weight changed by greater than 3 pounds in a day, to let her primary care physician know and take an extra Lasix. I did increase her Lasix from 20 mg to 40 mg daily along with increase in her potassium p.o. NEW HOME MEDICATIONS: 1. Mucinex 1200 mg twice daily. 2. Micro-K 30 mEq daily with breakfast. 3. Cefdinir 300 mg twice daily, #10. 4. Lasix 40 mg daily, 20 mg tablets, #30. 5. Potassium chloride 10 mEq, 30 mEq daily with breakfast, #30. DISPOSITION: The patient is discharged home. Condition on discharge was stable and improved. #[id number] [facility]
== END 2017-12-12 14:00 | disposition home or self-care (01) | DRG 291 ==
LOC: ER 06:14 → MS 11:25
PROVIDERS: ADMIT Nurse Practitioner Acute Care; ATTEND Nurse Practitioner Family
DX: I11.0 Hypertensive heart disease with heart failure (principal); I50.21 Acute systolic (congestive) heart failure; Z85.528 Personal history of other malignant neoplasm of kidney; Z88.2 Allergy status to sulfonamides; Z87.891 Personal history of nicotine dependence; F12.90 Cannabis use, unspecified, uncomplicated; J40 Bronchitis, not specified as acute or chronic; E87.6 Hypokalemia; E83.42 Hypomagnesemia; D64.9 Anemia, unspecified; Z90.5 Acquired absence of kidney

== ENCOUNTER → 2018-11-08 | Outpatient (CLI) | payer OTHER ==
--- NOTE | 2018-11-08 17:23 | CT ---
EXAM DESCRIPTION: Abdomen/Pelvis w/wo Contrast CLINICAL HISTORY: 43 years Female Vomitting, unspecified COMPARISON: None TECHNIQUE: Images were obtained in axial, sagittal, and coronal planes. Images were obtained prior to and following the intravenous administration of contrast material. This exam was performed according to our departmental dose-optimization program which includes use of Automated Exposure Control, adjustment of the mA and/or kV according to patient size and/or use of iterative reconstruction technique. FINDINGS: Enlarged right lobe of liver. Unremarkable spleen, pancreas, or adrenal glands bilaterally. Mildly distended gallbladder. No obstructing renal calcifications bilaterally. No hydronephrosis bilaterally. Renal parenchymal scarring superolateral left kidney. Unremarkable bladder. Surgical clips rectosigmoid colon and right ilium likely with bowel anastomosis. No bowel obstruction, perforation, or inflammation. Appendix not well identified however no secondary signs for appendicitis. No dilatation abdominal aorta or portal vein. No adenopathy or abnormal fluid collections seen. No abnormality lower lungs bilaterally. Bilateral breast implants. No acute osseous abnormality. IMPRESSION: No acute intra-abdominal abnormality. Electronically signed by: Zully Washington MD 11/08/2018 5:22 PM CDT
== END ==
LOC: LAB.O 15:28
PROVIDERS: ATTEND Family Medicine
DX: R11.10 Vomiting, unspecified (principal); R18.8 Other ascites

== ENCOUNTER 2018-11-14 20:09 | Emergency (ER) | payer SELFPAY ==
[2018-11-14] MEDS ORDERED: ACETAMINOPHEN 500 MG TAB PO ONE (21:15)
[2018-11-14] MEDS ORDERED: ONDANSETRON INJ 4 MG/2 ML VIAL IV ONE (21:15)
[2018-11-14] MEDS ORDERED: SODIUM CHLORIDE 0.9% 1000ML 1,000 ML IVS ONE (21:15)
--- NOTE | 2018-11-14 21:19 | ED.PDOC ---
History of Present Illness - General Chief Complaint: GI Problem Stated Complaint: N/V/D Time Seen by Provider: 11/14/18 21:03 - History of Present Illness Initial Comments: 43 yo F PMH Cancer Colon Resection Volvulus presents to ED c/o multiple episodes of vomiting abdominal pain abdominal distention and diarrhea. Denies fever chills admits nausea vomiting diarrhea chest pain sob diaphoresis. Admits decreased appetite and symptoms disturb rest no change in bladder has Surgeon Dr. Retana who she saw today and PMD Dr. Juárez admits smoking denies drinking admits FH HTN denies FH DM no other c/o today parents at bedside. Review of Systems - Review of Systems Constitutional: States: malaise EENTM: States: no symptoms reported Respiratory: States: no symptoms reported Cardiology: States: no symptoms reported Gastrointestinal/Abdominal: States: abdominal pain, diarrhea, nausea, vomiting Genitourinary: States: no symptoms reported Musculoskeletal: States: no symptoms reported Skin: States: no symptoms reported Neurological: States: no symptoms reported Endocrine: States: no symptoms reported All other Systems: Reviewed and Negative Past Medical History (General) - Patient Medical History Hx Seizures: No Hx Stroke: No Hx Dementia: No Hx Asthma: No Hx of COPD: No Hx Congestive Heart Failure: Yes Hx Pacemaker: Yes - placed on 12/01/17 Hx Hypertension: No Hx Thyroid Disease: No Hx Diabetes: No Hx Gastroesophageal Reflux: No Hx Renal Disease: No Hx Cancer: Yes - left kidney Hx of HIV: No Hx MRSA: No - Vaccination History Hx Tetanus, Diphtheria Vaccination: Yes Hx Influenza Vaccination: Yes Hx Pneumococcal Vaccination: No - Social History Hx Tobacco Use: Yes Hx Alcohol Use: No Hx Substance Use: No Hx Substance Use Treatment: No Hx Depression: No Hx Physical Abuse: No Hx Emotional Abuse: No Hx Suspected Abuse: No Family Medical History - Family History Paternal Living Status: Still Living Hx Family Asthma: No Hx Family Congestive Heart Failure: No Hx Family Hypertension: Yes Hx Family Stroke: No Hx Cardiac Disease: Yes Hx Family Diabetes: No Hx Family Cancer: Yes Hx Family;Other: lymphoma, materal COPD, cardiomyopathy Father Age (years): 69+ Living Status: Still Living Hx Family Asthma: No Hx Family Congestive Heart Failure: No Hx Family Hypertension: Yes Hx Family Stroke: No Hx Cardiac Disease: No Hx Family Diabetes: No Hx Family Cancer: Yes - kidney,lymphoma Physical Exam - Physical Exam General Appearance: Other - uncomfortable Eyes, Ears, Nose, Throat Exam: normal ENT inspection Neck: non-tender, full range of motion Respiratory: normal breath sounds, no respiratory distress Cardiovascular/Chest: regular rate, rhythm Gastrointestinal/Abdominal: distended, tenderness - diffusely tender distended Extremity: normal range of motion Neurologic: no motor/sensory deficits Skin Exam: normal color Progress - Progress Progress: 11/14/18 21:21 A/P-Abdominal Pain Abdominal Distention Nausea Vomiting 1.iv bolus fluids tylenol zofran cbc cmp lipase ct abdomen pelvis urinalysis troponin ekg bnp cxr reassess 11/15/18 03:30 Labs imaging and EKG grossly unremarkable pt smiling tolerating PO in the ED will d/c follow up pcp referral and general surgery - Results/Orders Results/Orders: Laboratory Tests 11/14/18 11/14/18 11/14/18 21:23 21:30 21:30 WBC 4.9 RBC 3.83 L Hgb 12.9 Hct 38.0 MCV 99.3 H MCH 33.6 H MCHC 33.8 RDW 14.3 Plt Count 211 MPV 7.3 L Absolute Neuts (auto) 2.60 Absolute Lymphs (auto) 1.60 Absolute Monos (auto) 0.60 Absolute Eos (auto) 0.00 Absolute Basos (auto) 0.10 Neutrophils % 53.0 Lymphocytes % 32.7 Monocytes % 12.6 H Eosinophils % 0.6 L Basophils % 1.1 Sodium 138 Potassium 3.9 Chloride 105 Carbon Dioxide 19 L Anion Gap 17.9 BUN 7 Creatinine 0.59 L BUN/Creatinine Ratio 11.9 Random Glucose 82 Serum Osmolality 272.7 L Calcium 9.2 Total Bilirubin 0.3 AST 79 H ALT 33 Alkaline Phosphatase 89 Troponin I B-Natriuretic Peptide 25.4 Serum Total Protein 8.1 Albumin 4.7 Globulin 3.4 Albumin/Globulin Ratio 1.4 Lipase 11/14/18 11/14/18 21:30 21:30 WBC RBC Hgb Hct MCV MCH MCHC RDW Plt Count MPV Absolute Neuts (auto) Absolute Lymphs (auto) Absolute Monos (auto) Absolute Eos (auto) Absolute Basos (auto) Neutrophils % Lymphocytes % Monocytes % Eosinophils % Basophils % Sodium Potassium Chloride Carbon Dioxide Anion Gap BUN Creatinine BUN/Creatinine Ratio Random Glucose Serum Osmolality Calcium Total Bilirubin AST ALT Alkaline Phosphatase Troponin I < 0.02 B-Natriuretic Peptide Serum Total Protein Albumin Globulin Albumin/Globulin Ratio Lipase 40 EXAM DESCRIPTION: Abdomen Series CLINICAL HISTORY: 43 years Female pain COMPARISON: None TECHNIQUE: Four images of the abdomen were obtained which included an AP view of the chest. FINDINGS: Gas is seen throughout the bowel. Mild bowel distention. Mild gastric distention. No intraperitoneal free air. Cardiac size is within normal limits. Central vessels are not increased. Pacemaker leads identified. No infiltrates or effusions seen. Electrodes overlying the mid left hemithorax. IMPRESSION: Nonspecific bowel gas pattern. No bowel obstruction or perforation. No active cardiopulmonary disease. Electronically signed by: Zully Washington MD 11/14/2018 9:48 PM CDT - 2201 CLINICAL HISTORY: pain COMPARISON: None. TECHNIQUE: CT ABDOMEN PELVIS WITH IV CONTRAST on 11/14/2018 9:13 PM CDT This exam was performed according to our departmental dose-optimization program, which includes automated exposure control, adjustment of the mA and/or kV according to patient size and/or use of iterative reconstruction technique. FINDINGS: Lower lungs are clear. Abdomen: The liver is normal in appearance. There is no biliary dilatation. Gallbladder is normal in appearance. The pancreas and spleen are normal in appearance. The adrenal glands and kidneys are unremarkable. Abdominal aorta is normal in course and caliber without aneurysm. There is no free air. There is no retroperitoneal adenopathy. Pelvis: Sigmoid colon resection was performed. Urinary bladder is unremarkable. There is no free fluid. Hysterectomy was performed. Appendix is not seen. Skeleton: There are no acute osseous findings. No suspicious bony lesions. IMPRESSION: No acute inflammatory process. No renal or ureteral calculi. Electronically signed by: Deniz Prabhakar MD 11/14/2018 10:33 PM CDT EKG-non specific TW changes No STEMI Departure - Departure Clinical Impression: Abdominal distension Abdominal pain Qualifiers: Abdominal location: generalized Qualified Code(s): R10.84 - Generalized abdominal pain Nausea & vomiting Qualifiers: Vomiting type: unspecified Vomiting Intractability: unspecified Qualified Code(s): R11.2 - Nausea with vomiting, unspecified Disposition: Discharge to Home or Self Care Condition: Good Departure Forms: ED Discharge - Pt. Copy, Patient Portal Self Enrollment Instructions: DI for Abdominal Pain-Adult Referrals: Alejandro Garcia MD [Primary Care Provider] - 1-2 Days Prescriptions: Acetaminophen [Tylenol] 650 mg PO Q6H PRN #30 tab PRN Reason: Pain Ibuprofen 600 mg PO Q6H PRN #20 tab PRN Reason: Pain Ondansetron HCl [Zofran] 4 mg PO Q8H PRN 5 Days #15 tab PRN Reason: Nausea Home Medications: Ambulatory Orders Bifidobacterium Infantis [Align] 4 mg PO DAILY 12/08/17 Carvedilol 6.25 mg PO BID 12/08/17 Docusate Sodium [Colace] 100 mg PO BID 12/08/17 Gabapentin 300 mg PO TID 12/08/17 Lisinopril 2.5 mg PO DAILY 12/08/17 Ondansetron [Ondansetron Odt] 8 mg PO Q8HR PRN 12/08/17 Polyethylene Glycol 3350 [Miralax] 17 gm PO DAILY 12/08/17 Simethicone 125 mg PO TID 12/08/17 Tramadol HCl 50 mg PO PRN 12/08/17 cloNAZepam [Klonopin] 0.5 mg PO BID PRN 12/08/17 Cefdinir [Omnicef] 300 mg PO BID #10 cap 12/12/17 Furosemide [Lasix] 40 mg PO DAILY #30 tab 12/12/17 Potassium Chloride Tab [Micro-K] 30 meq PO DAILYBK #30 tab 12/12/17 guaiFENesin ER TAB [Mucinex Tab] 1,200 mg PO BID tab 12/12/17 Acetaminophen [Tylenol] 650 mg PO Q6H PRN #30 tab 11/15/18 Ibuprofen 600 mg PO Q6H PRN #20 tab 11/15/18 Ondansetron HCl [Zofran] 4 mg PO Q8H PRN 5 Days #15 tab 11/15/18
--- NOTE | 2018-11-14 21:50 | RAD ---
EXAM DESCRIPTION: Abdomen Series CLINICAL HISTORY: 43 years Female pain COMPARISON: None TECHNIQUE: Four images of the abdomen were obtained which included an AP view of the chest. FINDINGS: Gas is seen throughout the bowel. Mild bowel distention. Mild gastric distention. No intraperitoneal free air. Cardiac size is within normal limits. Central vessels are not increased. Pacemaker leads identified. No infiltrates or effusions seen. Electrodes overlying the mid left hemithorax. IMPRESSION: Nonspecific bowel gas pattern. No bowel obstruction or perforation. No active cardiopulmonary disease. Electronically signed by: Zully Washington MD 11/14/2018 9:48 PM CDT
--- NOTE | 2018-11-14 22:35 | CT ---
CLINICAL HISTORY: pain COMPARISON: None. TECHNIQUE: CT ABDOMEN PELVIS WITH IV CONTRAST on 11/14/2018 9:13 PM CDT This exam was performed according to our departmental dose-optimization program, which includes automated exposure control, adjustment of the mA and/or kV according to patient size and/or use of iterative reconstruction technique. FINDINGS: Lower lungs are clear. Abdomen: The liver is normal in appearance. There is no biliary dilatation. Gallbladder is normal in appearance. The pancreas and spleen are normal in appearance. The adrenal glands and kidneys are unremarkable. Abdominal aorta is normal in course and caliber without aneurysm. There is no free air. There is no retroperitoneal adenopathy. Pelvis: Sigmoid colon resection was performed. Urinary bladder is unremarkable. There is no free fluid. Hysterectomy was performed. Appendix is not seen. Skeleton: There are no acute osseous findings. No suspicious bony lesions. IMPRESSION: No acute inflammatory process. No renal or ureteral calculi. Electronically signed by: Deniz Prabhakar MD 11/14/2018 10:33 PM CDT
[2018-11-15 03:03] VITALS: O2SAT 99
[2018-11-15 04:01] VITALS: BP 124/87; TEMP 97.8
== END 2018-11-15 04:01 | disposition home or self-care (01) ==
LOC: ER 20:09
DX: R11.2 Nausea with vomiting, unspecified (principal); R10.84 Generalized abdominal pain; R14.0 Abdominal distension (gaseous); R19.7 Diarrhea, unspecified; R07.9 Chest pain, unspecified; R06.02 Shortness of breath; F17.200 Nicotine dependence, unspecified, uncomplicated; I50.9 Heart failure, unspecified; Z95.0 Presence of cardiac pacemaker; Z85.528 Personal history of other malignant neoplasm of kidney
CPT/HCPCS: 74019; 74177; 80053; 81001; 83690; 83880; 84484; 85025; 93005; J2405; J7030

== ENCOUNTER 2019-01-25 17:58 | Emergency (ER) | payer SELFPAY ==
[2019-01-25] MEDS ORDERED: ACETAMINOPHEN-CAFF-BUTALBITAL 1 EA TAB PO ONE (18:21)
--- NOTE | 2019-01-25 18:21 | ED.PDOC ---
History of Present Illness - General Chief Complaint: Lower Extremity Injury Stated Complaint: L knee discomfort and swelling Time Seen by Provider: 01/25/19 18:13 Source: patient Exam Limitations: no limitations - History of Present Illness Initial Comments: The patient's a 43-year-old female presenting to the emergency room secondary to medial left knee pain with almost any movement for the last week. She apparently twisted it a week ago. There is mild swelling over the anserine bursa. Tenderness to palpation over the medial collateral ligament. No obvious knee instability with testing. Mild swelling medially. Mild bruising from what was apparently a fall. No other injuries. Timing/Duration: 1 week Severity: moderate Improving Factors: immobilization Worsening Factors: movement Associated Symptoms: denies symptoms Allergies/Adverse Reactions: Allergies Sulfa Antibiotics Allergy (Unknown, Verified 12/08/17 06:34) Other Home Medications: Ambulatory Orders Bifidobacterium Infantis [Align] 4 mg PO DAILY 12/08/17 Carvedilol 6.25 mg PO BID 12/08/17 Docusate Sodium [Colace] 100 mg PO BID 12/08/17 Gabapentin 300 mg PO TID 12/08/17 Lisinopril 2.5 mg PO DAILY 12/08/17 Ondansetron [Ondansetron Odt] 8 mg PO Q8HR PRN 12/08/17 Polyethylene Glycol 3350 [Miralax] 17 gm PO DAILY 12/08/17 Simethicone 125 mg PO TID 12/08/17 Tramadol HCl 50 mg PO PRN 12/08/17 cloNAZepam [Klonopin] 0.5 mg PO BID PRN 12/08/17 Cefdinir [Omnicef] 300 mg PO BID #10 cap 12/12/17 Furosemide [Lasix] 40 mg PO DAILY #30 tab 12/12/17 Potassium Chloride Tab [Micro-K] 30 meq PO DAILYBK #30 tab 12/12/17 guaiFENesin ER TAB [Mucinex Tab] 1,200 mg PO BID tab 12/12/17 Acetaminophen [Tylenol] 650 mg PO Q6H PRN #30 tab 11/15/18 Ibuprofen 600 mg PO Q6H PRN #20 tab 11/15/18 Ondansetron HCl [Zofran] 4 mg PO Q8H PRN 5 Days #15 tab 09/18/19 Zhmdalrmmxwdd-Dykt-Mbqsjyfvmn [Fioricet] 1 ea PO Q8H PRN #21 tab 01/25/19 Review of Systems - Review of Systems Constitutional: States: no symptoms reported EENTM: States: no symptoms reported Respiratory: States: no symptoms reported Cardiology: States: no symptoms reported Gastrointestinal/Abdominal: States: no symptoms reported Genitourinary: States: no symptoms reported Musculoskeletal: States: see HPI Skin: States: see HPI Neurological: States: no symptoms reported Endocrine: States: no symptoms reported All other Systems: No Change from Baseline Past Medical History (General) - Patient Medical History Hx Seizures: No Hx Stroke: No Hx Dementia: No Hx Asthma: No Hx of COPD: No Hx Cardiac Disorders: Yes - has defib in place Hx Congestive Heart Failure: Yes Hx Pacemaker: Yes - placed on 12/01/17 Hx Hypertension: No Hx Thyroid Disease: No Hx Diabetes: No Hx Gastroesophageal Reflux: No Hx Renal Disease: No Hx Cancer: Yes - left kidney Hx of HIV: No Hx Hepatitis C: No Hx MRSA: No Surgical History: appendectomy, colectomy, Hysterectomy - Vaccination History Hx Tetanus, Diphtheria Vaccination: No Hx Influenza Vaccination: No Hx Pneumococcal Vaccination: No Immunizations Up to Date: Yes - Social History Hx Tobacco Use: Yes Hx Chewing Tobacco Use: No Hx Alcohol Use: No Hx Substance Use: No Hx Substance Use Treatment: No Hx Depression: No Feels Threatened In Home Enviroment: No Feels Threatened In a Relationship: No Hx Physical Abuse: No Hx Emotional Abuse: No Hx Suspected Abuse: No - Activities of Daily Living Hospice Agency (if applicable):: None - Female History Patient is a Female of Child Bearing Age (10 -59 yrs old): No Family Medical History - Family History Paternal Living Status: Still Living Hx Family Asthma: No Hx Family Congestive Heart Failure: No Hx Family Hypertension: Yes Hx Family Stroke: No Hx Cardiac Disease: Yes Hx Family Diabetes: No Hx Family Cancer: Yes Hx Family;Other: lymphoma, materal COPD, cardiomyopathy Father Age (years): 69+ Living Status: Still Living Hx Family Asthma: No Hx Family Congestive Heart Failure: No Hx Family Hypertension: Yes Hx Family Stroke: No Hx Cardiac Disease: No Hx Family Diabetes: No Hx Family Cancer: Yes - kidney,lymphoma Physical Exam - Physical Exam General Appearance: Alert, Comfortable, No apparent distress Eye Exam: bilateral normal Ears, Nose, Throat: hearing grossly normal Neck: full range of motion, supple Respiratory: no respiratory distress, no accessory muscle use Cardiovascular/Chest: normal peripheral pulses, no edema Peripheral Pulses: dorsalis pedis,right: 2+, dorsalis pedis,left: 2+ Rectal Exam: deferred Extremity: normal range of motion, no pedal edema, no calf tenderness, normal capillary refill, other - see history of present illness Neurologic: general assembler II-XII nml as tested, alert, normal mood/affect, oriented x 3 Skin Exam: normal color - ild bruising and a mild abrasion to the left leg. Comments: Vital Signs - 8 hr 01/25/19 18:03 Temperature 97.0 F L Pulse Rate [ 88 Right Radial] Respiratory 18 Rate Blood Pressure 103/71 [Left Arm] O2 Sat by Pulse 97 Oximetry Progress - Progress Progress: 01/25/19 18:19 the patient is a 43-year-old female presenting to the emergency room secondary to what appears to be a left medial knee sprain. She is going to be placed in a knee immobilizer for a few weeks. She can ambulate with this. Motrin or Tylenol can be used for discomfort. She will also be written for a short prescription for Fioricet. When she does not have weight on the leg, she can do passive range of motion exercises. No pivoting on the leg with weight. X-rays were reassuring. ER warnings were given. Follow-up with primary care doctor in a couple of weeks. kyle ceja [id number] - Results/Orders Results/Orders: X-ray of the left knee shows no acute pathology. Departure - Departure Clinical Impression: Sprain, knee Qualifiers: Encounter type: initial encounter Involved ligament of knee: medial collateral ligament Laterality: left Qualified Code(s): S83.412A - Sprain of medial collateral ligament of left knee, initial encounter Disposition: Discharge to Home or Self Care Condition: Fair Departure Forms: ED Discharge - Pt. Copy, Patient Portal Self Enrollment Instructions: DI for Knee Pain Diet: regular diet Activity: no pushing/pulling with affected limb Referrals: Alejandro Garcia MD [Primary Care Provider] - 1-2 Weeks Prescriptions: Tqvjnvhutykfr-Rikx-Oovylscnwu [Fioricet] 1 ea PO Q8H PRN #21 tab PRN Reason: Pain Home Medications: Ambulatory Orders Bifidobacterium Infantis [Align] 4 mg PO DAILY 12/08/17 Carvedilol 6.25 mg PO BID 12/08/17 Docusate Sodium [Colace] 100 mg PO BID 12/08/17 Gabapentin 300 mg PO TID 12/08/17 Lisinopril 2.5 mg PO DAILY 12/08/17 Ondansetron [Ondansetron Odt] 8 mg PO Q8HR PRN 12/08/17 Polyethylene Glycol 3350 [Miralax] 17 gm PO DAILY 12/08/17 Simethicone 125 mg PO TID 12/08/17 Tramadol HCl 50 mg PO PRN 12/08/17 cloNAZepam [Klonopin] 0.5 mg PO BID PRN 12/08/17 Cefdinir [Omnicef] 300 mg PO BID #10 cap 12/12/17 Furosemide [Lasix] 40 mg PO DAILY #30 tab 12/12/17 Potassium Chloride Tab [Micro-K] 30 meq PO DAILYBK #30 tab 12/12/17 guaiFENesin ER TAB [Mucinex Tab] 1,200 mg PO BID tab 12/12/17 Acetaminophen [Tylenol] 650 mg PO Q6H PRN #30 tab 11/15/18 Ibuprofen 600 mg PO Q6H PRN #20 tab 11/15/18 Ondansetron HCl [Zofran] 4 mg PO Q8H PRN 5 Days #15 tab 11/15/18 Sibxjhddfcfwf-Iuxn-Mhfvhlshfp [Fioricet] 1 ea PO Q8H PRN #21 tab 01/25/19 Additional Instructions: the patient is a 43-year-old female presenting to the emergency room secondary to what appears to be a left medial knee sprain. She is going to be placed in a knee immobilizer for a few weeks. She can ambulate with this. Motrin or Tylenol can be used for discomfort. She will also be written for a short prescription for Fioricet. When she does not have weight on the leg, she can do passive range of motion exercises. No pivoting on the leg with weight. X-rays were reassuring. ER warnings were given. Follow-up with primary care doctor in a couple of weeks.
--- NOTE | 2019-01-25 18:51 | RAD ---
EXAM: XR Left Knee, 3 Views CLINICAL HISTORY: 1 week medial pain TECHNIQUE: Three views of the left knee. COMPARISON: No relevant prior studies available. FINDINGS: Limitations: None. Bones/joints: Unremarkable. No acute fracture. No dislocation. Soft tissues: Unremarkable. IMPRESSION: No acute findings in the left knee. Electronically signed by: Marietta Moise MD 01/25/2019 6:50 PM DIRECTOR PRIVATE
[2019-01-25 19:01] VITALS: BP 94/69; TEMP 98.2; O2SAT 99
== END 2019-01-25 19:11 | disposition home or self-care (01) ==
LOC: ER 17:58
DX: S83.412A Sprain of medial collateral ligament of left knee, initial encounter (principal); I50.9 Heart failure, unspecified; Z95.0 Presence of cardiac pacemaker; Z85.528 Personal history of other malignant neoplasm of kidney; Z87.891 Personal history of nicotine dependence; Z79.899 Other long term (current) drug therapy; Z88.2 Allergy status to sulfonamides; X50.9XXA Other and unspecified overexertion or strenuous movements or postures, initial encounter; W19.XXXA Unspecified fall, initial encounter; Y92.9 Unspecified place or not applicable